=== PATIENT | female | born 1940 | race Caucasian/White ===

== ENCOUNTER 2023-05-06 11:03 | Outpatient (CLI) | payer MEDICARE, SELFPAY | END 2023-05-06 11:04 | disposition home or self-care (01) | LOC: NFLDREF 05-10 14:15 | PROVIDERS: Visit Provider Registered Nurse | DX: R35.89 Other polyuria (principal); N39.0 Urinary tract infection, site not specified; N30.00 Acute cystitis without hematuria | CPT/HCPCS: 87086 ==

== ENCOUNTER 2023-12-10 11:30 | Outpatient (CLI) | payer MEDICARE, SELFPAY | END 2023-12-10 11:31 | disposition home or self-care (01) | LOC: AMB 12-14 14:44 | PROVIDERS: Visit Provider Family Medicine | DX: R41.82 Altered mental status, unspecified (principal) | CPT/HCPCS: A0998 ==

== ENCOUNTER 2023-12-11 10:03 | Emergency (ER) | payer MEDICARE, SELFPAY ==
[2023-12-11] VITALS (29 sets, daily range): BP systolic 188–226; BP diastolic 77–104; PULSE 56–65; RESP 18; TEMP 36.8; O2SAT 97–100; BMI 23.5
--- NOTE | 2023-12-11 10:18 | ED.NURSE ---
Talked with MD about pt symptoms and complaints, MD did not want to do a stroke code at this time.
--- NOTE | 2023-12-11 10:29 | ED_ITS ---
HPI - Neuro Symptoms/Deficit General Chief Complaint: Neuro Symptoms/Altered Deficit Stated Complaint: slight numbness in left arm Time Seen by Provider: 12/11/23 10:05 History of Present Illness HPI Narrative: This 83-year-old female comes in reporting an episode of altered sensation in her left upper extremity along with some drooping of her face that occurred at 10:45 a.m. in the morning yesterday, about 24 hours ago. These symptoms resolved after 15-30 minutes. An ambulance was present and recommended evaluation in the ER but the patient declined at that time. She comes in today stating that she feels a very slight symptom of altered sensation or weakness in her left arm. She arrives here with no neurologic deficits. She does not report a headache. She is walking and talking normally. She is not taking any medications. She states that she was prescribed amlodipine but has not been taking this because she did not like some adverse effects. She does arrive with elevated blood pressure initially at 198/89. She is very active and her daughter reports that she really does not want to be here and would rather be out riding her bike. She does not have any prior history of stroke. Related Data Home Medications Medication Instructions Recorded Confirmed amlodipine 5 mg tablet 5 mg PO DAILY 05/06/23 12/11/23 ibuprofen 200 mg tablet (Advil) 200 mg PO Q8H 12/11/23 12/11/23 Previous Rx's Medication Instructions Recorded clopidogrel 75 mg tablet (Plavix) 75 mg PO DAILY #30 tabs 12/11/23 rosuvastatin 20 mg tablet (Crestor) 20 mg PO DAILY #30 tabs 12/11/23 Allergies Allergy/AdvReac Type Severity Reaction Status Date / Time Sulfa (Sulfonamide Allergy Intermediate Wheezing Verified 12/11/23 10:14 Antibiotics) Review of Systems Status of ROS: Reports: 10 or more systems reviewed and unremarkable except as noted in History and below Narrative: Constitutional: No fevers, no weight gain or loss. Eyes: No discharge. No vision changes. HENT: No congestion, no sore throat, no ear pain. Cardiovascular: No chest pain, no palpitations. Respiratory: No shortness of breath, no wheezes, no cough. Gastrointestinal: No abdominal pain, no vomiting, no diarrhea. Genitourinary: No dysuria, no hematuria. Musculoskeletal: Normal range of motion. Skin: No rashes, no pruritis. Neurological: No dizziness. Brief episode of facial droop and some difficulty with speech that occurred yesterday. Endo/Heme/Allergies: No bruising or bleeding. No polydipsia. Pysch: no suicidality, no anxiety, no insomnia. All other systems reviewed and are negative. [facility] Surgical History (Updated 02/07/23 @ 10:25 by Brigido Mcintyre) History of pelvic surgery (~1991) ?Z98.890 - Other specified postprocedural states (ICD-10) Social History Smoking Status: Unknown if ever smoked Do you use any of these nicotine containing products: None How often do you have a drink containing alcohol: never How often do you have six or more drinks on one occasion: Never AUDIT-C Alcohol total score: 0 Non-prescribed substance use: denies use service: No Exam Narrative: Exam Narrative: Constitutional: Well-developed, well-nourished, no acute distress. HEENT: Normocephalic, atraumatic. Neck: Normal range of motion. Nontender. Supple. Heart: Regular. No murmurs. Normal rate. Intact distal pulses. Lungs: Clear to auscultation. No chest discomfort. No wheezes, rhonchi, or rales. Abdomen: Normal bowel sounds. Nontender. No rebound tenderness. Genitalia: Deferred. Back: No midline tenderness. Normal range of motion. Extremities: Normal range of motion. No injury. Skin: Intact. No rash. Warm. No erythema or pallor. Neurologic: No altered sensation. No weakness. Alert and oriented. No facial asymmetry. Tongue is midline. [id number] is normal. No pronator drift. Commercial Intelligence Manager strength is equal bilaterally. Able to raise each leg from the bed. Psychiatric: No suicidality. No anxiety or depression. No insomnia. Nursing notes and vitals signs are reviewed. Const: Vital Signs, click to edit/add: Vital Signs - 24 hr 12/11/23 10:07 12/11/23 11:01 12/11/23 11:02 Temperature 98.2 F Pulse Rate 61 61 Pulse Rate [Right Pulse Oximeter] 64 Respiratory Rate 18 Blood Pressure 201/77 H Blood Pressure [Le ft Upper Arm] 198/89 H Pulse Oximetry 97 97 98 Oxygen Delivery Me thod Room Air 12/11/23 11:15 12/11/23 11:16 12/11/23 11:18 Temperature Pulse Rate 60 56 L 58 L Pulse Rate [Right Pulse Oximeter] Respiratory Rate Blood Pressure 196/82 H 188/77 H Blood Pressure [Le ft Upper Arm] Pulse Oximetry 98 98 98 Oxygen Delivery Me thod 12/11/23 11:19 12/11/23 11:30 12/11/23 12:46 Temperature Pulse Rate 59 L 59 L 61 Pulse Rate [Right Pulse Oximeter] Respiratory Rate Blood Pressure Blood Pressure [Le ft Upper Arm] Pulse Oximetry 99 99 99 Oxygen Delivery Me thod 12/11/23 12:48 12/11/23 12:58 12/11/23 13:00 Temperature Pulse Rate 61 58 L Pulse Rate [Right Pulse Oximeter] Respiratory Rate Blood Pressure 226/91 H Blood Pressure [Le ft Upper Arm] Pulse Oximetry 100 99 Oxygen Delivery Me thod 12/11/23 13:03 12/11/23 13:15 12/11/23 13:18 Temperature Pulse Rate 61 60 61 Pulse Rate [Right Pulse Oximeter] Respiratory Rate Blood Pressure 224/101 H 195/78 H Blood Pressure [Le ft Upper Arm] Pulse Oximetry 99 99 98 Oxygen Delivery Me thod 12/11/23 13:30 12/11/23 13:33 12/11/23 13:45 Temperature Pulse Rate 62 63 62 Pulse Rate [Right Pulse Oximeter] Respiratory Rate Blood Pressure 200/84 H Blood Pressure [Le ft Upper Arm] Pulse Oximetry 99 98 98 Oxygen Delivery Me thod 12/11/23 13:47 12/11/23 14:03 12/11/23 14:17 Temperature Pulse Rate 65 Pulse Rate [Right Pulse Oximeter] Respiratory Rate Blood Pressure 199/95 H 216/104 H 205/99 H Blood Pressure [Le ft Upper Arm] Pulse Oximetry 97 Oxygen Delivery Me thod 12/11/23 14:20 Temperature Pulse Rate 63 Pulse Rate [Right Pulse Oximeter] Respiratory Rate Blood Pressure Blood Pressure [Le ft Upper Arm] Pulse Oximetry 99 Oxygen Delivery Me thod Course Vital Signs Vital signs: Initial Vital Signs Temperature 98.2 F 12/11/23 10:07 Temperature Source Temporal Artery Scan 12/11/23 10:07 Pulse Rate 64 12/11/23 10:07 Pulse Rhythm Regular 12/11/23 10:07 Respiratory Rate 18 12/11/23 10:07 Blood Pressure 198/89 H 12/11/23 10:07 Blood Pressure Mean 125 H 12/11/23 10:07 Blood Pressure Position Semi-Fowlers 12/11/23 10:07 Pulse Oximetry 97 12/11/23 10:07 Oxygen Delivery Method Room Air 12/11/23 10:07 Vital Signs Temperature 98.2 F 12/11/23 10:07 Pulse Rate 64 12/11/23 10:07 Respiratory Rate 18 12/11/23 10:07 Blood Pressure 198/89 H 12/11/23 10:07 Pulse Oximetry 97 12/11/23 10:07 Oxygen Delivery Method Room Air 12/11/23 10:07 Temperature 98.2 F 12/11/23 10:07 Pulse Rate 63 12/11/23 14:20 Respiratory Rate 18 12/11/23 10:07 Blood Pressure 205/99 H 12/11/23 14:17 Pulse Oximetry 99 12/11/23 14:20 Oxygen Delivery Method Room Air 12/11/23 10:07 MDM - Neuro Symptoms/Deficit MDM Narrative Medical decision making narrative: This patient comes in with report of symptoms that are suspicious for a cerebr ovascular accident but these symptoms resolved within 30-50 minutes. It took some persuading but the patient finally did agree to have MRI done. This returns with evidence of occluded left internal carotid artery and evidence of small stroke. I did consult initially with Neurology on-call, Dr. Redmond, who followed up with results and eventually did do a video assessment of the patient and recommended hospitalization. The patient is resistant toward hospitalization but eventually agreed. I called Dr. Boone to arrange for admission and during his interview she change her mind and states that she wants to go home. The patient is therefore discharged home. She does have a follow- up appointment with a primary care provider tomorrow. I did provide prescriptions for Crestor 20 mg daily and Plavix 75 mg daily. She is instructed also to take a baby aspirin daily. Lab Data Labs: Lab Results 12/11/23 12/11/23 Range/Units 10:46 11:00 WBC 5.77 (4.50-11.00) K/uL RBC 4.35 (4.00-5.20) m/uL Hgb 13.6 (12.0-16.0) gm/dL Hct 41.2 (33.0-51.0) % MCV 95 (80-100) fL MCH 31 (26-34) pg MCHC 33 (32-36) gm/dL RDW Coeff of Cece 12.2 (11.5-15.5) % Plt Count 198 (140-440) K/uL Neut % (Auto) 69.5 (42.0-72.0) % Lymph % (Auto) 22.4 (20-44) % Meeker % (Auto) 5.7 (0.0-11.0) % Eos % (Auto) 1.9 (0.0-7.0) % Baso % (Auto) 0.3 (0.0-3.0) % Neut # (Auto) 4.01 (1.7-7.0) K/uL Lymph # (Auto) 1.29 (0.90-2.90) K/uL Meeker # (Auto) 0.30 (0.00-0.90) K/UL Eos # (Auto) 0.11 (0.00-0.50) K/uL Baso # (Auto) 0.02 (0.00-0.30) K/uL Abs Immat Gran (auto) 0.01 (0.00-0.30) K/uL Imm/Tot Granulo (auto) 0.2 % Sodium 140 (135-149) mmol/L Potassium 4.2 (3.6-5.1) mmol/L Chloride 109 (96-114) mmol/L Carbon Dioxide 27 (20-32) mmol/L Anion Gap 4 L (7-15) mEq/L BUN 14 (7-30) mg/dL Creatinine 0.8 (0.5-1.5) mg/dL Estimated Creat Clear 42.91 Estimated GFR 74 ml/min Glucose 94 (60-115) mg/dL Calcium 9.1 (8.4-10.6) mg/dL POC Troponin I 0.00 L (0.01-0.04) ng/ml Imaging Data MR Brain: Radiologist's impression: Findings: Multiple small foci of diffusion restriction in the left insular cortex and left frontal parietal operculum compatible with acute embolic ischemic infarcts in the left MCA territory. The ventricles, sulci and gyri are normal size, shape and contour for age. The midline structures are centrally located with no evidence of shift. There are no suspicious intra or extra-axial fluid collections. The pituitary gland, optic chiasm, pineal gland, and cerebellar tonsils are unremarkable. Multiple scattered foci of T2 prolongation in the supratentorial white matter likely representing chronic small vessel ischemic changes. Loss of normal flow void in the left cavernous, petrous, and upper cervical ICA segments. No abnormal contrast enhancement involving the brain parenchyma, meninges, calvarium or skull base. Pannus posterior to the dens measuring up to 7 mm AP contacts the ventral cord surface and results in mild spinal canal narrowing. Impression: 1. Multiple small acute ischemic infarcts in the left insular cortex and left frontal and parietal operculum, likely embolic left MCA territory infarcts. 2. Mild parenchymal volume loss. Moderate supratentorial chronic small vessel ischemic changes. 3. Occlusion of the left ICA. MR Angio: Radiologist's impression: Occlusion of the left internal carotid artery with reconstitution of the distal cavernous segment. Diminutive flow in the left supraclinoid ICA and left MCA artery and branches. Poor collateral flow. There is abrupt occlusion at the origin of the left ICA. Reconstitution of the distal cavernous left ICA from collaterals. Less than 50 percent stenosis of the right ICA origin due to atherosclerosis. Unremarkable vertebral arteries. ECG Data Attestation: I personally reviewed and interpreted this ECG as follows: Interpretation: Normal sinus rhythm. Rate is 59 beats per minute. There are no ST or T-wave abnormalities. Discharge Plan Discharge Clinical Impression: Cerebrovascular accident Patient Disposition: Home w/ Parent or Adult Condition: Stable Additional Instructions: Follow-up with primary care physician appointment as scheduled. Take Crestor and Plavix as prescribed. Also take aspirin 81 mg daily. Return if worsening. Prescriptions: New rosuvastatin [Crestor] 20 mg tablet 20 mg PO DAILY Qty: 30 2RF clopidogrel [Plavix] 75 mg tablet 75 mg PO DAILY Qty: 30 2RF No Action amlodipine 5 mg tablet 5 mg PO DAILY ibuprofen [Advil] 200 mg tablet 200 mg PO Q8H Follow Up/Referrals: Provider,Not a Local [Primary Care Provider] - Stand Alone Forms: [facility] [employer] Info Instructions
--- NOTE | 2023-12-11 10:44 | MR_ITS ---
Patient: BOBBY MOLINA Facility:?[facility] Patient ID:?[id number] Site Patient ID:?[id number] Site :?[id number] Study:?MRI-Head Angio WO-12/11/2023 12:47:34 PM Ordering Physician:KOFFI Final Report: Indication: TIA symptoms Technique: 3D [id number] MR angiogram of the [id number] with 3-dimensional MIP projections were submitted. Comparison: No prior studies available for comparison at this institution. Findings: The bilateral vertebral arteries, basilar artery and posterior cerebral arteries are unremarkable. origin of the right CONSTRUCTION MGR. The right internal carotid artery and right middle cerebral artery are unremarkable. The right anterior cerebral artery is unremarkable. Hypoplastic left A1 ALEXANDRA segment. Non- opacification of the distal cervical, ascending, petrous and cavernous segments of the left ICA. There is minimal opacification of the distal cavernous and supraclinoid ICA segments with minimal opacification of the left middle cerebral artery and branches compatible with proximal occlusion and minimal collateral flow to the left MCA and branches. Discussed with Dr. Tobar at 1 p.m. 12/11/2023 Impression: Occlusion of the left internal carotid artery with reconstitution of the distal cavernous segment. Diminutive flow in the left supraclinoid ICA and left MCA artery and branches. Poor collateral flow. Dictated by Mack Morales MD @ 12/11/2023 1:02:23 PM Signed by:?Mack Morales MD @12/11/2023 1:02:23 PM (Electronic Signature)
--- NOTE | 2023-12-11 11:05 | MR_ITS ---
Patient: BOBBY MOLINA Facility:?[facility] Patient ID:?[id number] Site Patient ID:?[id number] Site :?[id number] Study:?MRI-Neck Angio WO/W DOTAREM 14ML-12/11/2023 12:46:44 PM Ordering Physician:KOFFI Final Report: Indication: TIA symptoms Technique: [id number] MRA of the neck with 3D MIP reconstructions provided. All measurements are based on NASCET criteria. Comparison: No prior studies available for comparison at this institution. Findings: The left vertebral artery is widely patent. The right vertebral artery is widely patent. The right common carotid artery is widely patent. 33 percent stenosis of the right ICA origin due to atherosclerotic plaque. The right ICA is otherwise widely patent. The left common carotid artery is unremarkable. There is abrupt occlusion at the origin of the left ICA. Reconstitution of the distal cavernous left ICA from collaterals. Discussed with Dr. Tobar at 1:02 p.m. Impression: 1. There is abrupt occlusion at the origin of the left ICA. Reconstitution of the distal cavernous left ICA from collaterals. 2. Less than 50 percent stenosis of the right ICA origin due to atherosclerosis. 3. Unremarkable vertebral arteries. Dictated by Mack Morales MD @ 12/11/2023 1:07:37 PM Signed by:?Mack Morales MD @12/11/2023 1:07:37 PM (Electronic Signature)
--- NOTE | 2023-12-11 11:05 | MR_ITS ---
Patient: BOBBY MOLINA Facility:?[facility] Patient ID:?[id number] Site Patient ID:?[id number] Site :?[id number] Study:?MRI-Head WO/W DOTAREM 14ML-12/11/2023 12:46:07 PM Ordering Physician:KOFFI Final Report: Indication: TIA SYMPTOMS Technique: Noncontrast sagittal T1, axial FLAIR, T2 turbo spine echo, and diffusion weighted images. Supplemental post contrast T1 weighted axial and coronal sequences are provided after administration of 14 mL gadolinium-based IV contrast. Comparison: No prior studies available for comparison at this institution. Findings: Multiple small foci of diffusion restriction in the left insular cortex and left frontal parietal operculum compatible with acute embolic ischemic infarcts in the left MCA territory. The ventricles, sulci and gyri are normal size, shape and contour for age. The midline structures are centrally located with no evidence of shift. There are no suspicious intra or extra-axial fluid collections. The pituitary gland, optic chiasm, pineal gland, and cerebellar tonsils are unremarkable. Multiple scattered foci of T2 prolongation in the supratentorial white matter likely representing chronic small vessel ischemic changes. Loss of normal flow void in the left cavernous, petrous, and upper cervical ICA segments. No abnormal contrast enhancement involving the brain parenchyma, meninges, calvarium or skull base. Pannus posterior to the dens measuring up to 7 mm AP contacts the ventral cord surface and results in mild spinal canal narrowing. Impression: 1. Multiple small acute ischemic infarcts in the left insular cortex and left frontal and parietal operculum, likely embolic left MCA territory infarcts. 2. Mild parenchymal volume loss. Moderate supratentorial chronic small vessel ischemic changes. 3. Occlusion of the left ICA. Dictated by Mack Morales MD @ 12/11/2023 12:56:07 PM Signed by:?Mack Morales MD @12/11/2023 12:56:07 PM (Electronic Signature)
[2023-12-11 11:07] LABS: Basophils Absolute Auto 0.02 K/uL (0.00-0.30); Basophils Percent Auto 0.3 % (0.0-3.0); Eosinophils Absolute Auto 0.11 K/uL (0.00-0.50); Eosinophils Percent Auto 1.9 % (0.0-7.0); Hematocrit 41.2 % (33.0-51.0); Hemoglobin* 13.6 gm/dL (12.0-16.0); Immature Granulocytes Abs Auto 0.01 K/uL (0.00-0.30); Immature Granulocytes Pct Auto 0.2 %; Lymphocytes Absolute Auto 1.29 K/uL (0.90-2.90); Lymphocytes Percent Auto 22.4 % (20-44); Mean Corpuscular HGB Conc 33 gm/dL (32-36); Mean Corpuscular Hemoglobin 31 pg (26-34); Mean Corpuscular Volume 95 fL (80-100); Monocytes Percent Auto 5.7 % (0.0-11.0); Neutrophils Absolute Auto 4.01 K/uL (1.7-7.0); Neutrophils Percent Auto 69.5 % (42.0-72.0); Platelet Count* 198 K/uL (140-440); RDW Coefficient of Variation % 12.2 % (11.5-15.5); Red Blood Count 4.35 m/uL (4.00-5.20); White Blood Count* 5.77 K/uL (4.50-11.00)
[2023-12-11 11:11] LABS: Slide Review Reflex No
[2023-12-11 11:25] LABS: Chloride* 109 mmol/L (96-114)
[2023-12-11 11:26] LABS: Potassium* 4.2 mmol/L (3.6-5.1); Sodium* 140 mmol/L (135-149)
[2023-12-11 11:28] LABS: Creatinine* 0.8 mg/dL (0.5-1.5); Est. Creatinine Clearance* 42.91; Estimated Glomerular Filt Rate 74 ml/min
[2023-12-11 11:29] LABS: Anion Gap 4 mEq/L (7-15); Blood Urea Nitrogen* 14 mg/dL (7-30); Calcium* 9.1 mg/dL (8.4-10.6); Carbon Dioxide* 27 mmol/L (20-32); Glucose* 94 mg/dL (60-115)
--- NOTE | 2023-12-11 13:00 | ED.NURSE ---
At the time of visit pt was not slurring words. No weakness was noted on any of the pt extremeties.
--- NOTE | 2023-12-11 14:39 | ED.NURSE ---
Pt report given to mckenzie WEATHERS. Pt to room 279.
--- NOTE | 2023-12-11 15:33 | PM.IMCN1 ---
Date of Consult Patient: Other Consult date: 12/11/23 Requesting Physician: Other (Emergency department) Primary Care Provider: Not a Local Provider Consult Narrative Reason for consult: Admission for stroke Narrative: Emergency department HPI: This 83-year-old female comes in reporting an episode of altered sensation in her left upper extremity along with some drooping of her face that occurred at 10:45 a.m. in the morning yesterday, about 24 hours ago. These symptoms resolved after 15-30 minutes. An ambulance was present and recommended evaluation in the ER but the patient declined at that time. She comes in today stating that she feels a very slight symptom of altered sensation or weakness in her left arm. She arrives here with no neurologic deficits. She does not report a headache. She is walking and talking normally. She is not taking any medications. She states that she was prescribed amlodipine but has not been taking this because she did not like some adverse effects. She does arrive with elevated blood pressure initially at 198/89. She is very active and her daughter reports that she really does not want to be here and would rather be out riding her bike. She does not have any prior history of stroke. I was called to see the patient for admission to the hospital for ongoing evaluation management of stroke symptoms and stroke risk factors. Patient had initially agreed to hospital admission but then declined admission after a prolonged discussion about risks and benefits of ongoing inpatient evaluation and management of stroke. She reports feeling fine at this time. She has no altered sensation or weakness, visual disturbance or functional deficits at this time. She denies any other medical problems. She does not get routine medical care and does not have a primary care provider though she has an appointment tomorrow morning with a primary care provider. Patient had tele neurology stroke consultation in the emergency department Review of Systems Narrative: She reports feeling entirely well and is anxious to go home [facility] Medical History (Updated 12/11/23 @ 15:43 by Lisandro Boone MD) Carotid artery obstruction ?I65.29 - Occlusion and stenosis of unspecified carotid artery (ICD-10) Hypertension ?I10 - Essential (primary) hypertension (ICD-10) Urge incontinence of urine ?N39.41 - Urge incontinence (ICD-10) Closed head injury ?S09.90XA - Unspecified injury of head, initial encounter (ICD-10) Chronic dermatitis ?L30.9 - Dermatitis, unspecified (ICD-10) Surgical History (Updated 02/07/23 @ 10:25 by Brigido Mcintyre) History of pelvic surgery (~1991) ?Z98.890 - Other specified postprocedural states (ICD-10) Social History Smoking Status: Unknown if ever smoked Do you use any of these nicotine containing products: None How often do you have a drink containing alcohol: never How often do you have six or more drinks on one occasion: Never AUDIT-C Alcohol total score: 0 Non-prescribed substance use: denies use service: No Meds Home Medications and Allergies Home Medications Medication Instructions Recorded Confirmed Type amlodipine 5 mg tablet 5 mg PO DAILY 05/06/23 12/11/23 History ibuprofen 200 mg tablet (Advil) 200 mg PO Q8H 12/11/23 12/11/23 History Allergies Allergy/AdvReac Type Severity Reaction Status Date / Time Sulfa (Sulfonamide Allergy Intermediate Wheezing Verified 12/11/23 10:14 Antibiotics) Exam Narrative: Exam Narrative: She is alert and appears in no distress. Speech is fluent. She is able to give good details of her own history. Head is without obvious trauma. No facial asymmetry. She moves all 4 extremities well. Const: Vital Signs, click to edit/add: Vital Signs - 24 hr 12/11/23 10:07 12/11/23 11:01 12/11/23 11:02 Temperature 98.2 F Pulse Rate 61 61 Pulse Rate [Right Pulse Oximeter] 64 Respiratory Rate 18 Blood Pressure 201/77 H Blood Pressure [Le ft Upper Arm] 198/89 H Pulse Oximetry 97 97 [facility] 12/11/23 11:15 12/11/23 11:16 12/11/23 11:18 Temperature Pulse Rate 60 56 L 58 L Pulse Rate [Right Pulse Oximeter] Respiratory Rate Blood Pressure 196/82 H 188/77 H Blood Pressure [Le ft Upper Arm] Pulse Oximetry 98 98 98 [facility] 12/11/23 11:19 12/11/23 11:30 12/11/23 12:46 Temperature Pulse Rate 59 L 59 L 61 Pulse Rate [Right Pulse Oximeter] Respiratory Rate Blood Pressure Blood Pressure [Le ft Upper Arm] Pulse Oximetry 99 99 99 [facility] 12/11/23 12:48 12/11/23 12:58 12/11/23 13:00 Temperature Pulse Rate 61 58 L Pulse Rate [Right Pulse Oximeter] Respiratory Rate Blood Pressure 226/91 H Blood Pressure [Le ft Upper Arm] Pulse Oximetry 100 99 Oxygen Delivery Me thod 12/11/23 13:03 12/11/23 13:15 12/11/23 13:18 Temperature Pulse Rate 61 60 61 Pulse Rate [Right Pulse Oximeter] Respiratory Rate Blood Pressure 224/101 H 195/78 H Blood Pressure [Le ft Upper Arm] Pulse Oximetry 99 99 98 Oxygen Delivery Me thod 12/11/23 13:30 12/11/23 13:33 12/11/23 13:45 Temperature Pulse Rate 62 63 62 Pulse Rate [Right Pulse Oximeter] Respiratory Rate Blood Pressure 200/84 H Blood Pressure [Le ft Upper Arm] Pulse Oximetry 99 98 98 Oxygen Delivery Me thod 12/11/23 13:47 12/11/23 14:03 12/11/23 14:17 Temperature Pulse Rate 65 Pulse Rate [Right Pulse Oximeter] Respiratory Rate Blood Pressure 199/95 H 216/104 H 205/99 H Blood Pressure [Le ft Upper Arm] Pulse Oximetry 97 Oxygen Delivery Me thod 12/11/23 14:20 Temperature Pulse Rate 63 Pulse Rate [Right Pulse Oximeter] Respiratory Rate Blood Pressure Blood Pressure [Le ft Upper Arm] Pulse Oximetry 99 Oxygen Delivery Me thod Documenting provider has reviewed patient's vital signs: yes Labs Labs: Short CBC 12/11/23 Range/Units 11:00 WBC 5.77 (4.50-11.00) K/uL Hgb 13.6 (12.0-16.0) gm/dL Hct 41.2 (33.0-51.0) % Plt Count 198 (140-440) K/uL BMP 12/11/23 11:00 Sodium 140 Potassium 4.2 Chloride 109 Carbon Dioxide 27 BUN 14 Creatinine 0.8 Glucose 94 Calcium 9.1 ECG Attestation: I personally reviewed and interpreted this ECG as follows: (Sinus bradycardia. No acute ST-T changes) Imaging MR - Other: Radiologist's impression: Final Report: Indication: TIA symptoms Technique: Fhrg-no-cqnygl MRA of the neck with 3D MIP reconstructions provided. All measurements are based on NASCET criteria. Comparison: No prior studies available for comparison at this institution. Findings: The left vertebral artery is widely patent. The right vertebral artery is widely patent. The right common carotid artery is widely patent. 33 percent stenosis of the right ICA origin due to atherosclerotic plaque. The right ICA is otherwise widely patent. The left common carotid artery is unremarkable. There is abrupt occlusion at the origin of the left ICA. Reconstitution of the distal cavernous left ICA from collaterals. Discussed with Dr. Tobar at 1:02 p.m. Impression: 1. There is abrupt occlusion at the origin of the left ICA. Reconstitution of the distal cavernous left ICA from collaterals. 2. Less than 50 percent stenosis of the right ICA origin due to atherosclerosis. 3. Unremarkable vertebral arteries. MR Brain: Radiologist's impression: Final Report: Indication: TIA SYMPTOMS Technique: Noncontrast sagittal T1, axial FLAIR, T2 turbo spine echo, and diffusion weighted images. Supplemental post contrast T1 weighted axial and coronal sequences are provided after administration of 14 mL gadolinium-based IV contrast. Comparison: No prior studies available for comparison at this institution. Findings: Multiple small foci of diffusion restriction in the left insular cortex and left frontal parietal operculum compatible with acute embolic ischemic infarcts in the left MCA territory. The ventricles, sulci and gyri are normal size, shape and contour for age. The midline structures are centrally located with no evidence of shift. There are no suspicious intra or extra-axial fluid collections. The pituitary gland, optic chiasm, pineal gland, and cerebellar tonsils are unremarkable. Multiple scattered foci of T2 prolongation in the supratentorial white matter likely representing chronic small vessel ischemic changes. Loss of normal flow void in the left cavernous, petrous, and upper cervical ICA segments. No abnormal contrast enhancement involving the brain parenchyma, meninges, calvarium or skull base. Pannus posterior to the dens measuring up to 7 mm AP contacts the ventral cord surface and results in mild spinal canal narrowing. Impression: 1. Multiple small acute ischemic infarcts in the left insular cortex and left frontal and parietal operculum, likely embolic left MCA territory infarcts. 2. Mild parenchymal volume loss. Moderate supratentorial chronic small vessel ischemic changes. 3. Occlusion of the left ICA. Final Report: Indication: TIA symptoms Technique: 3D Pqye-it-wtwmto MR angiogram of the jjbmqr-[id number] with 3-dimensional MIP projections were submitted. Comparison: No prior studies available for comparison at this institution. Findings: The bilateral vertebral arteries, basilar artery and posterior cerebral arteries are unremarkable. origin of the right SECUR[employer] PROFESSIONAL. The right internal carotid artery and right middle cerebral artery are unremarkable. The right anterior cerebral artery is unremarkable. Hypoplastic left A1 ALEXANDRA segment. Non-opacification of the distal cervical, ascending, petrous and cavernous segments of the left ICA. There is minimal opacification of the distal cavernous and supraclinoid ICA segments with minimal opacification of the left middle cerebral artery and branches compatible with proximal occlusion and minimal collateral flow to the left MCA and branches. Discussed with Dr. Tobar at 1 p.m. 12/11/2023 Impression: Occlusion of the left internal carotid artery with reconstitution of the distal cavernous segment. Diminutive flow in the left supraclinoid ICA and left MCA artery and branches. Poor collateral flow. Assessment and Plan Assessment and plan (1) Carotid artery obstruction: Status: Acute (2) Cerebrovascular accident: Status: Acute (3) Hypertension: Status: Acute Plan We recommended admission to the hospital for ongoing evaluation and management of stroke and stroke risk factors. Ultimately after prolonged discussion she declined admission and is discharged to home. She has follow-up at [facility] tomorrow. I recommend the following: Echocardiogram Medications: Rosuvastatin 20 mg daily, aspirin 81 mg daily indefinitely, clopidogrel 75 mg daily for 1 month, initiate blood pressure medicine to achieve optimal blood pressure control over the next few weeks. Discuss with Stroke Neurology whether outpatient cardiac monitoring is indicated. Total Time Spent Total Time Spent: Total time spent today is 45 minutes, 35 minutes in coordination of care and discussing with patient, daughter and other providers ongoing evaluation management of stroke
== END 2023-12-11 15:35 | disposition home or self-care (01) ==
LOC: ED 10:42 → MEDSURG 14:36
PROVIDERS: Emergency Provider Emergency Medicine Emergency Medical Services
DX: I63.9 Cerebral infarction, unspecified (principal)
CPT/HCPCS: 36415; 70544; 70549; 70553; 80048; 84484; 85025; 93005; 99284; 99285; A9575

== ENCOUNTER 2024-04-29 12:59 | Outpatient (CLI) | payer MEDICARE, SELFPAY | END 2024-04-29 13:00 | disposition home or self-care (01) | LOC: NFLDUCREF 12:59 | PROVIDERS: Visit Provider Nurse Practitioner | DX: R30.0 Dysuria (principal); R35.0 Frequency of micturition | CPT/HCPCS: 87086 ==

== ENCOUNTER 2025-07-07 19:18 | Outpatient (CLI) | payer MEDICARE, SELFPAY | END 2025-07-07 19:19 | disposition home or self-care (01) | LOC: AMB 07-09 16:50 | PROVIDERS: PCP Internal Medicine; Visit Provider Family Medicine | DX: R07.89 Other chest pain (principal) | CPT/HCPCS: A0425; A0427 ==

== ENCOUNTER 2025-07-07 19:56 | Emergency (ER) | payer MEDICARE, SELFPAY ==
[2025-07-07] VITALS (25 sets, daily range): BP systolic 147–252; BP diastolic 71–101; PULSE 56–74; RESP 4–22; TEMP 36.7; O2SAT 95–99; BMI 24.2
--- NOTE | 2025-07-07 20:22 | CRLHL7_ITS ---
For Patients: As a result of the Cures Act, medical imaging exams and procedure reports are released immediately into your electronic medical record. You may view this report before your referring provider. If you have questions, please contact your health care provider. INDICATION: Chest pain TECHNIQUE: Chest radiograph 1 view on 2 images COMPARISON: None FINDINGS: Mediastinum: The mediastinum is normal in appearance. The cardiac silhouette is mildly enlarged but may be accentuated by the portable technique. Lung: Both lungs are unremarkable in appearance. No sign of pleural effusion seen. No pneumothorax is identified. Bone and Soft tissue: Unremarkable for age. IMPRESSION: 1. The cardiac silhouette is mildly enlarged but may be accentuated by the portable technique. Dictated by Wilbert Garces MD @ 07/07/2025 9:39:03 PM Dictated by: Wilbert Garces MD @ 07/07/2025 21:39:11 (Electronically Signed)
--- OUTSIDE RECORDS SUMMARY | 2025-07-07 20:43 | XMS_ITS | Clinical Summary ---
Author Organization [facility] Address [address] [place] [id number] Care Team Providers Care Information Technology Teacher Name Role Phone Pcp, No Primary Care Provider Unavailabl e Allergies Active Allergy Reactions Criticality Noted Date Comments Sulfa (Sulfonamide Antibiotics) Shortness Of Breath 09/17/2008 Medications aspirin chewable 81 mg chewable tablet Chew 1 Tablet (81 mg) by mouth once daily with a meal. 4 Active losartan (COZAAR) 25 mg tabletIndications:Pr imary hypertension Take 1 Tablet (25 mg) by mouth once daily. 30 Tablet 1 4 Active rosuvastatin (CRESTOR) 5 mg tabletIndications:Ac maximilian ischemic cerebrovascular accident (CVA) involving left middle cerebral artery territory (HC) Take 1 Tablet (5 mg) by mouth at bedtime. 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 05/18/2000 RECURRENT DERMATITIS BACK 01/18/1999 REACTIVE AIRWAYS DISEASE - MILD 05/06/1998 Overview (09/17/2008): Asthma uses inhaler when she gets attacks cats dogs, gilbert URINARY INCONTINENCE AND CHRONIC FREQUENCY 05/06 Resolved Problems Problem Noted Date Diagnosed Date Resolved Date See problem list document fo r additional problems 07/18/2000 03/24/2023 Family History Medical History Relation Name Comments Cancer Brother melanoma Alcohol/Drug Father Alcohol/Drug Mother Heart Disease Mother alive 2008 Cancer-breast Neg. Cancer-colon Neg. Genetic Other No family hx of GA problems/bleeding disorders. Relation Name Status Comments Brother Father Mother Neg. Other Social History Tobacco Use Types Packs/Day Years Used Date Smoking Tobacco: Never Smokeless Tobacco: Never Tobacco Cessation:Counseling Given: Yes Alcohol Use Standard Drinks/Week Comments Yes 2 (1 standard drink = 0.6 oz pur e alcohol) PHQ-2 Answer Date Recorded PHQ-2 TOTAL SCORE 0 03/23/2023 Social Connections Answer Date Recorded Frequency of Communication with Friends and Fami ly 0 03/23/2023 Financial Resource Strain Answer Date R ecorded Difficulty of Paying Living Expenses 3 03/23/2023 Difficulty of Paying Living Expenses Not on file 03/23/2023 Food Insecurity Answer Date Recorded Worried About Running Out of Food in the Last Ye ar 1 03/23/2023 Transportation Needs Answer Date Record ed Lack of Transportation (Medical) 1 03/23/2023 Housing Stability Answer Date Recorded Unable to Pay for Housing in the Last Year 1 03/23/2023 Comments No Sex and Gender Information Value Date Recorded Sex Assigned at Not on file Legal Sex Female 5:22 AM NURSE REVIEWER Gender Identity Not on file Sexual Orientation Not on file Last Filed Vital Signs Vital Sign Reading Time Taken Comments Blood Pressure 166/71 01/11/2024 1:10 PM CDT Pulse 60 01/11/2024 1:10 PM CDT Temperature 36.5 C (97.7 F) 01/11/2024 1:10 PM CDT Respiratory Rate 16 09/03/2015 10:48 AM NURSE REVIEWER Oxygen Saturation 97% 01/11/2024 1:10 PM CDT Inhaled Oxygen Concentration - - Weight 76.7 kg (169 lb 3.2 oz) 01/11/2024 1:10 P M CDT Height 169.5 cm (5' 6.73) 03/23/2023 1:39 PM CD T Body Mass Index 26.71 03/23/2023 1:39 PM CDT Plan of Treatment Health Maintenance Due Date Last Done Comments Tetanus booster 1953 Pneumococcal series for age 50+ (1 of 1 - PCV) 1992 Zoster (shingles) series for age 50+ (1 of 2) 1992 DEXA/DXA scan for age 65+ 2007 RSV vaccine for adults or (1 - 1-dose 75+ series) 2017 BMI (ht and wt on same day) for age 18+ 03/23/2024 03/23/2023 Depression screening for age 12+ 03/23/2024 03/23/2023 Medicare Wellness for age 65+ 03/23/2024 03/23/2023 COVID-19 vaccine series ( season) 2025 09/21/2020, 08/31/2020 Influenza Vaccine (#1) 2025 Hepatitis B series for 19+ Aged Out N o longer eligible based on patient's age to complete this topic Insurance MEDICARE [place] ONLY MEDICARE PART B HB ONLY [employer] [place] ONLY Care Teams Information Technology Teacher Relationship Specialty Start Date End Date Pcp, No . PCP - General 08/08/24
--- OUTSIDE RECORDS SUMMARY | 2025-07-07 20:43 | XMS_ITS | Encounter Summary ---
[facility] Organization [facility] Address [address] [address] Care Team Providers Care Driver Service Technician Name Role Phone Yesy Jain PA-C Primary Care Provider [phone]- [phone] Encounter Details Date Type Department Care Team (Late st Contact Info) Description 05/10/2016 Correspondence Travel and Tropical Medicine [address] [facility] [place], [place] [id number] Loida Weiner PA-C [address] [place] [address] [facility] PAYMENT AGREEMENT WAIVER Social History Tobacco Use Types Packs/Day Years Used Date Smoking Tobacco: Never Smokeless Tobacco: Never Alcohol Use Standard Drinks/Week Comments Yes 0 (1 standard drink = 0.6 oz pur e alcohol) rarely Comments No Sex and Gender Information Value Date Recorded Sex Assigned at Not on file Legal Sex Female 6:43 AM CDT Gender Identity Not on file Sexual Orientation Not on file documented as of this encounter Plan of Treatment Not on file documented as of this encounter Visit Diagnoses Not on filedocumented in this encounter Care Teams Driver Service Technician Relationship Specialty Start Date End Date Yesy Jain PA-C [address] [place] [id number] PCP - General 09/26/23 documented as of this encounter
--- OUTSIDE RECORDS SUMMARY | 2025-07-07 20:43 | XMS_ITS | Encounter Summary ---
Author Organization [facility] Address [address], [place] [address] Care Team Providers Care Rate Clerk Name Role Phone Yesy Jain PA-C Primary Care Provider [phone]- [phone] Reason for Visit * Reason Comments QUESTIONS, GENERAL Encounter Details Date Type Department Care Team (Late st Contact Info) Description 03/05/2025 Telephone [facility] [address] Rehabilitative Medicine [address] [place] [address] Mack Medrano MD [address] [place] [address] QUESTIONS, GENERAL Social History Tobacco Use Types Packs/Day Years Used Date Smoking Tobacco: Never Smokeless Tobacco: Never Alcohol Use Standard Drinks/Week Comments Yes 0 (1 standard drink = 0.6 oz pur e alcohol) rarely PHQ-2 Answer Date Recorded PHQ-2 Score 0 04/02/2021 Comments No Sex and Gender Information Value Date Recorded Sex Assigned at Not on file Legal Sex Female 6:43 AM CDT Gender Identity Not on file Sexual Orientation Not on file Occupation Industry Job Start Date Job End Date retired Not on file Not on file Not on file documented as of this encounter Nursing Notes * Genet Garcia - 03/05/2025 1:57 PM CDT The patient called back and said thank you for the information. She will cancel with us and try to get help elsewhere. * Mack Medrano MD - 03/05/2025 1:40 PM CDT I do not perform any injections myself that would help with shingles related pain so any potential injection would need to be arranged on a different day. Please make sure she is aware that I am not a pain clinic doctor. I reviewed the outside records and it appears she has already tried the type of treatments that I would have to offer for post-shingles pain with the various nerve pain medications. It also appears that she has tried intercostal nerve block injections. We can do an evaluation to review if she wants, but I am not sure I would have any further alternatives to offer. * Genet Garcia - 03/05/2025 12:38 PM CDT Pt called to ask if it is decided she needs a procedure after her 8-[address] Medrano, can it be the same or next day. Pt was told it all depends on the doctor's treatment plan and availability and we won't know till then. Pt insists on talking to a nurse. documented in this encounter Plan of Treatment Not on file documented as of this encounter Visit Diagnoses Not on filedocumented in this encounter Care Teams Rate Clerk Relationship Specialty Start Date End Date Yesy Jain PA-C [address] [place] [phone] PCP - General 09/26/23 documented as of this encounter
--- OUTSIDE RECORDS SUMMARY | 2025-07-07 20:43 | XMS_ITS | Encounter Summary ---
Author Organization [facility] Address [address] [address] Care Team Providers Care Dowel Setting Machine Operator Name Role Phone Yesy Jain PA-C Primary Care Provider [phone]- [phone] Encounter Details Date Type Department Care Team (Late st Contact Info) Description 11/20/2012 Scanned History External to External, [place] [address] [facility] Social History Tobacco Use Types Packs/Day Years Used Date Smoking Tobacco: Never Smokeless Tobacco: Never Alcohol Use Standard Drinks/Week Comments Yes 0 (1 standard drink = 0.6 oz pur e alcohol) Comments No Sex and Gender Information Value Date Recorded Sex Assigned at Not on file Legal Sex Female 6:43 AM CDT Gender Identity Not on file Sexual Orientation Not on file documented as of this encounter Progress Notes * External, Provider - 11/20/2012 12:00 AM CDT documented in this encounter Plan of Treatment Not on file documented as of this encounter Visit Diagnoses Not on filedocumented in this encounter Care Teams Dowel Setting Machine Operator Relationship Specialty Start Date End Date Yesy Jain PA-C [address] [place] [phone] PCP - General 09/26/23 documented as of this encounter
[2025-07-07 20:53] LABS: INR 0.96 (0.91-1.10); Prothrombin Time 13.6 Seconds
[2025-07-07 20:56] LABS: D Dimer Quantitative* 0.54 ug/ml (0.00-0.50)
[2025-07-07 21:12] LABS: Hematocrit* 40.4 % (33.0-51.0); Hemoglobin* 13.1 gm/dL (12.0-16.0); Immature Granulocytes Abs Auto 0.00 K/uL (0.00-0.30); Immature Granulocytes Pct Auto 0.0 %; Lymphocytes Absolute Auto 1.71 K/uL (0.90-2.90); Mean Corpuscular HGB Conc 32 gm/dL (32-36); Mean Corpuscular Hemoglobin 31 pg (26-34); Mean Corpuscular Volume 95 fL (80-100); RDW Coefficient of Variation % 12.2 % (11.5-15.5); Red Blood Count* 4.24 m/uL (4.00-5.20); White Blood Count* 5.60 K/uL (4.50-11.00)
[2025-07-07 21:22] LABS: Slide Review Reflex No
[2025-07-07 21:30] LABS: Chloride* 98 mmol/L (96-114); Sodium* 136 mmol/L (135-149)
[2025-07-07 21:31] LABS: Potassium* 4.1 mmol/L (3.6-5.1)
[2025-07-07 21:33] LABS: Blood Urea Nitrogen* 24 mg/dL (7-30); Creatinine* 1.0 mg/dL (0.5-1.5); Est. Creatinine Clearance* 40.60; Estimated Glomerular Filt Rate 56 ml/min
[2025-07-07 21:34] LABS: Anion Gap 11 mEq/L (7-15); Calcium* 9.1 mg/dL (8.4-10.6); Carbon Dioxide* 27 mmol/L (20-32); Glucose* 135 mg/dL (60-115)
--- NOTE | 2025-07-07 21:54 | ED_ITS ---
HPI - Chest Pain General Date Seen: 07/07/25 Chief Complaint: Chest Pain Stated Complaint: Unspecified complaint Time Seen by Provider: 07/07/25 20:04 Source: patient, EMS, RN notes reviewed and old records reviewed Mode of arrival: EMS Limitations: no limitations History of Present Illness HPI narrative: Patient is 84-year-old female who presents here with the chest pain this is been coming on the last 4 days intermittently, relieved by rest, although in the last a she seems to get it more with just stress, she is going through a lot of family stress, she says tends to bring the pain on the last approximately 20 minutes comes across his chest and associated with pressure. There is no nausea diaphoresis associated with this. She got it 4 days ago starting while she was shoveling the driveway. EMS was called today after she discussed with her friends they gave her 1 nitroglycerin in the pain went away. She took 324 mg of ASA at home. She is currently pain-free Past history of chest pain. 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 She is not currently on any aspirin. MD complaint: chest pain Timing of current episode: episodic Prior episodes: Yes Onset: during rest and during exertion Pain location: substernal and right chest Pain radiation: left arm Quality: tightness and heaviness Treatment prior to arrival: aspirin and nitroglycerin Risk Factors Coronary artery disease risk factors: none Thoracic aortic dissection risk factors: none Related Data On Oral Contraceptives: No Home Medications ?Medication ?Instructions ?Recorded ?Confirmed naproxen sodium [Aleve] PO 05/07/25 05/07/25 Previous Rx's ?Medication ?Instructions ?Recorded aspirin 325 mg tablet 325 mg PO DAILY #30 tabs 03/24 nitroglycerin 0.4 mg sublingual 0.4 mg sublingual Q5-1 5M PRN chest 07/07/25 tablet pain #14 tabs Allergies Allergy/AdvReac Type Severity Reaction Status Date / Time Sulfa (Sulfonamide Allergy Intermediate Wheezing Verified 05/07/25 11:19 Antibiotics) Review of Systems Status of ROS Reports: 10 or more systems reviewed and unremarkable except as noted in History and below [facility] Medical History Chronic dermatitis ?L30.9 - Dermatitis, unspecified (ICD-10) Surgical History History of vaginal delivery History of pelvic surgery (~1991) ?Z98.890 - Other specified postprocedural states (ICD-10) Social History Narrative: , retired, three kids, nonsmoker, rare ETOH What is your current living situation?: I presently have a place to live Problems where you live: no known problems In the past 12 months, utilities in danger of being shut off: no In past 12 months, lack of transportation kept you from medical appts, meetings, work, or getting things needed for daily living: no In the past 12 mos, have been you worried that your food would run out before you had money to buy more?: never true In the past 12 mos, the food you bought just didn't last and you didn't have money to buy more?: never true Smoking Status: Unknown if ever smoked Do you use any of these nicotine containing products: None How often do you have a drink containing alcohol: never How often do you have six or more drinks on one occasion: Never AUDIT-C Alcohol total score: 0 Non-prescribed substance use: denies use How often does anyone, including family, friends and others, physically hurt you : never How often does anyone, including family, friends and others, insult or talk down to you: never How often does anyone, including family, friends and others, threaten you with harm: never How often does anyone, including family, friends and others, scream or curse at you: never service: No Exam Narrative Exam Narrative: On examination is stable 2 she is in no apparent distress she is pleasant alert looks quite a bit younger than her stated age, her pupils equal round reactive to light there is no scleral icterus redness, TMs are normal oropharynx is normal her neck is supple full range of motion chest is good air entry bilaterally no wheezing crackles noted her heart sounds are normal her abdomen is soft there is no guarding no organomegaly bowel sounds are normal, she moves all extremities independently and well, no edema swelling negative Homans sign. Const Vital Signs, click to edit/add: Vital Signs - 24 hr 07/07/25 19:58 12/08/25 20:17 07/07/25 20:18 Temperature 98.0 F Pulse Rate 69 66 Pulse Rate [Pulse Oximeter] 67 Respiratory Rate 18 8 L 21 Blood Pressure 222/101 H Blood Pressure [Right Upper Arm] 147/96 H Pulse Oximetry 97 99 98 Oxygen Delivery Method Room Air 07/07/25 20:31 07/07/25 20:34 07/07/25 20:45 Temperature Pulse Rate 69 70 62 Pulse Rate [Pulse Oximeter] Respiratory Rate 13 22 10 L Blood Pressure Blood Pressure [Right Upper Arm] Pulse Oximetry 98 96 97 Oxygen Delivery Method 07/07/25 20:50 Temperature Pulse Rate 61 Pulse Rate [Pulse Oximeter] Respiratory Rate 6 L Blood Pressure 192/84 H Blood Pressure [Right Upper Arm] Pulse Oximetry 97 Oxygen Delivery Method Room Air Course Vital Signs Vital signs: Initial Vital Signs Temperature 98.0 F 07/07/25 19:58 Temperature Source Temporal Artery Scan 07/07/25 19:58 Pulse Rate 67 07/07/25 19:58 Respiratory Rate 18 07/07/25 19:58 Blood Pressure 147/96 H 07/07/25 19:58 Blood Pressure Mean 113 H 07/07/25 19:58 Blood Pressure Position Supine 07/07/25 19:58 Pulse Oximetry 97 07/07/25 19:58 Oxygen Delivery Method Room Air 07/07/25 19:58 Vital Signs Temperature 98.0 F 07/07/25 19:58 Pulse Rate 67 07/07/25 19:58 Respiratory Rate 18 07/07/25 19:58 Blood Pressure 147/96 H 07/07/25 19:58 Pulse Oximetry 97 07/07/25 19:58 Oxygen Delivery Method Room Air 07/07/25 19:58 Temperature 98.0 F 07/07/25 19:58 Pulse Rate 61 07/07/25 20:50 Respiratory Rate 6 L 07/07/25 20:50 Blood Pressure 192/84 H 07/07/25 20:50 Pulse Oximetry 97 07/07/25 20:50 Oxygen Delivery Method Room Air 07/07/25 20:50 Medications Administered Medications: Discontinued Medications Generic Name Dose Route Start Last Admin Trade Name Freq PRN Reason Stop Dose Admin Sodium Chloride 1,000 mls @ 1,000 mls/hr 07/07/25 20:30 07/07/25 20:45 0.9 % Sodium Chloride 1000 Ml IV 07/07/25 21:29 1,000 mls/hr .Q1H EL Administration Metoprolol Tartrate 5 mg 07/07/25 21:01 07/07/25 22:05 Metoprolol Tartrate 1 Mg/Ml Inj IVP 07/07/25 21:02 5 mg ONCE ONE Administration MDM - Chest Pain MDM Narrative Medical decision making narrative: During the evaluation of this patient I considered multiple differential diagnosis is. The life-threatening differential diagnosis include coronary disease/CO, pulmonary embolism, pneumothorax, pneumonia, and aortic dissection. Other differential diagnosis included but were not limited to pericarditis, myocarditis, chest wall pain, GERD, esophageal rupture, rib fracture contusion, pleurisy, as well as other etiologies. This is consistent with unstable angina. We will do labs, but I suspect she will need a transfer. Medical Records Data Attestation: I reviewed the patient's medical records. Lab Data Attestation: I reviewed the patient's lab results. Labs: Lab Results 07/07/25 Range/Units 20:00 WBC 5.60 (4.50-11.00) K/uL RBC 4.24 (4.00-5.20) m/uL Hgb 13.1 (12.0-16.0) gm/dL Hct 40.4 (33.0-51.0) % MCV 95 (80-100) fL MCH 31 (26-34) pg MCHC 32 (32-36) gm/dL RDW Coeff of Cece 12.2 (11.5-15.5) % Plt Count 205 (140-440) K/uL Neut % (Auto) 60.5 (42.0-72.0) % Lymph % (Auto) 30.5 (20-44) % Griggs % (Auto) 6.1 (0.0-11.0) % Eos % (Auto) 2.5 (0.0-7.0) % Baso % (Auto) 0.4 (0.0-3.0) % Neut # (Auto) 3.39 (1.7-7.0) K/uL Lymph # (Auto) 1.71 (0.90-2.90) K/uL Griggs # (Auto) 0.30 (0.00-0.90) K/UL Eos # (Auto) 0.14 (0.00-0.50) K/uL Baso # (Auto) 0.02 (0.00-0.30) K/uL Abs Immat Gran (auto) 0.00 (0.00-0.30) K/uL Imm/Tot Granulo (auto) 0.0 % INR 0.96 (0.91-1.10) APTT 33 (23-33) Seconds D-Dimer Quant (PE/DVT) 0.54 H (0.00-0.50) ug/ml Sodium 136 (135-149) mmol/L Potassium 4.1 (3.6-5.1) mmol/L Chloride 98 (96-114) mmol/L Carbon Dioxide 27 (20-32) mmol/L Anion Gap 11 (7-15) mEq/L BUN 24 (7-30) mg/dL Creatinine 1.0 (0.5-1.5) mg/dL Estimated Creat Clear 40.60 Estimated GFR 56 ml/min Glucose 135 H (60-115) mg/dL Calcium 9.1 (8.4-10.6) mg/dL NT-Pro-B Natriuret Pep 256 (See Note) pg/mL Imaging Data Chest x-ray: Attestation: I have reviewed the pertinent imaging results. My impression: Nothing acute Radiologist's impression: [place] [address] Diagnostic Imaging Report Patient: Phyllis Tim MR#: [id number] : 1940 Acct:[id number] Loc: ED Service Date: 07/07/[address]: Ordering Physician: Arjun Tobar M.D. Date of Service: 07/07/25 Procedure(s): XR chest 1V portable Accession Number(s): [id number] cc: Jenniffer Mckay M.D.; Arjun Tobar M.D.~ For Patients: As a result of the Century Cures Act, medical imaging exams and procedure reports are released immediately into your electronic medical record. You may view this report before your referring provider. If you have questions, please contact your health care provider. INDICATION: Chest pain TECHNIQUE: Chest radiograph 1 view on 2 images COMPARISON: None FINDINGS: Mediastinum: The mediastinum is normal in appearance. The cardiac silhouette is mildly enlarged but may be accentuated by the portable technique. Lung: Both lungs are unremarkable in appearance. No sign of pleural effusion seen. No pneumothorax is identified. Bone and Soft tissue: Unremarkable for age. IMPRESSION: 1. The cardiac silhouette is mildly enlarged but may be accentuated by the portable technique. Dictated by Wilbert Garces MD @ 07/07/2025 9:39:03 PM Dictated by: Wilbert Garces MD @ 07/07/2025 21:39:11 (Electronically Signed) ECG Data Attestation: I personally reviewed and interpreted this ECG as follows: ECG interpretation date: 07/07/25 Prior ECG tracings: not available for review Interpretation: EKG shows normal sinus rhythm with a ventricular rate of 66, CA interval 184, QRS is 88, QT 414 QTC 434 Discharge Plan Discharge Clinical Impression: Angina pectoris, unstable, Elevated troponin, Elevated blood pressure reading Patient Disposition: Left Against Medical Advice Condition: Guarded Instructions: Angina (DC), Acute Coronary Syndrome (ED), Angiogram (DC), High Troponin Levels (ED) Additional Instructions: I discussed with you, the risks associated with leaving which her , di sability, cardiac arrest, his subsequent stroke or brain injury. The norm for this is transfer to a hospital that does Cardiology and angiograms. I offered tonight to talk to the nitroglycerin separator operator but you declined this intervention. I will send you home ask you to take a daily aspirin 325 mg, I also think nitroglycerin which we have call pull together some tablets you can take also. Our door is always open in you can return we can go through this process again, and hopefully convince you to go to [facility]. Avoidance of activity and light activity, follow-up in the next 48 hours with her primary care physician, and get scheduled for Cardiology, I also think he should be on some blood pressure medications also the will decrease the work of your heart, but I was unable to convince you of that here today. Activity Level: Light activity Discharge Diet: Heart Healthy (2 gm sodium, low fat) Prescriptions: New nitroglycerin 0.4 mg tablet, sublingual 0.4 mg sublingual Q5-15M PRN (Reason: chest pain) Qty: 14 0RF Rx Instructions: do not exceed 3 doses per episode aspirin 325 mg tablet 325 mg PO DAILY Qty: 30 2RF No Action naproxen sodium [Aleve] PO Follow Up/Referrals: Jenniffer Mckay MD [Primary Care Provider, Internal Medicine] Stand Alone Forms: [employer]ador Info Instructions
[2025-07-07 22:02] LABS: NT Pro B Type NatriureticPept* 256 pg/mL (See Note)
[2025-07-07] MEDS: METOPROLOL TARTRATE 1 MG/ML inj 5 MG IVP (22:05)
== END 2025-07-07 23:15 | disposition left against medical advice (07) ==
PROVIDERS: Emergency Provider Family Medicine; PCP Internal Medicine
DX: I20.0 Unstable angina (principal); R79.89 Other specified abnormal findings of blood chemistry; I10 Essential (primary) hypertension
CPT/HCPCS: 36415; 71045; 80048; 83880; 84484; 85025; 85379; 85610; 85730; 93005; 94761; 99284; 99285; J7030